=== PATIENT | female | born 2000 | race Caucasian/White ===

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

== ENCOUNTER 2019-01-17 15:08 | Outpatient (CLI) | payer OTHER, SELFPAY ==
[2019-01-17 15:51] LABS: *AMPHETAMINES SCREEN URINE Negative (Negative); *BARBITURATES SCREEN URINE Negative (Negative); *BENZODIAZEPINES SCREEN URINE Negative (Negative); Cannabinoids THC Negative (Negative); Cocaine Screen,Urine Negative (Negative); METHADONE URINE SCREEN Negative (Negative); OPIATES URINE SCREEN Negative (Negative)
[2019-01-17 15:52] LABS: Abs Immature Grans 0.01 k/cumm (0.0-0.09); Absolute Basophil Count 0.04 k/cumm (0.0-0.2); Absolute Eosinophil Count 0.29 k/cumm (0.0-0.7); Absolute Lymphocyte Count 2.33 k/cumm (1.2-3.4); Absolute Neutrophil Count 4.39 k/cumm (1.2-6.7); Basophils % 0.5; Eosinophils % 3.7; HCT 39.6 % (36.0-46.0); HGB 13.1 g/dL (12.0-15.5); Immature Grans % 0.1; Lymphocytes % 29.6; Mean Corp. HGB Concentration 33.1 g/dL (32.0-36.0); Mean Corpuscular Hemoglobin 29.8 pg (27.0-33.0); Mean Corpuscular Volume 90.2 fL (80-95); Mean Platelet Volume 10.7 fL (8.0-11.0); Monocytes % 10.2; Neutrophils % 55.9; Platelet Count 288 x1000/uL (130-400); RBC 4.39 m/cumm (4.00-5.20); White Blood Cell Count 7.86 k/cumm (4.4-10.8)
[2019-01-17 15:54] LABS: Bilirubin Negative (Negative); Blood Negative (Negative); Clarity CLEAR (Clear); Glucose Negative (Negative); Ketones Negative (Negative); Leukocyte Esterase Negative (Negative); Nitrite Negative (Negative); Specific Gravity <= 1.005 (1.005-1.025); Urobilinogen 0.2 EU/dL (Up TO 0.2); pH 5.5 (5-8)
[2019-01-17 15:57] LABS: Tricyclic Antidepressants Negative (Negative)
[2019-01-17 16:31] LABS: TSH (W/Ref FT4) 2.54 uIU/mL (0.52-4.13)
[2019-01-18 09:58] LABS: Rubella IgG Ab (UVM) Positive
[2019-01-18 10:06] LABS: Varicella IgG Antibody Negative
[2019-01-18 11:09] LABS: Hepatitis B Surface Ag Negative (NEGAT)
[2019-01-18 12:15] LABS: Hepatitis C Ab w Rflx HCV PCR Negative (NEGAT)
[2019-01-18 12:56] LABS: HIV-1/2 Ag & Ab Screen Negative (NEGAT)
[2019-01-18 16:10] LABS: Syphilis Total Ab w/Reflex Nonreactive (Nonreactive)
== END 2019-01-17 15:28 ==
PROVIDERS: Advanced Practice Midwife; PCP Pediatrics; Visit Provider Advanced Practice Midwife
DX: Z34.91 Encounter for supervision of normal pregnancy, unspecified, first trimester (principal); Z11.4 Encounter for screening for human immunodeficiency virus [HIV]; Z11.59 Encounter for screening for other viral diseases; Z01.84 Encounter for antibody response examination
CPT/HCPCS: 36415; 80307; 81329; 82950; 86787; 86803; 86850; 86900; 86901; 87340; 87389; 81003; 84443; 85025; 86762; 86780; 87086

== ENCOUNTER 2019-01-31 15:55 | Outpatient (REF) | payer OTHER, SELFPAY ==
[2019-02-02 15:28] LABS: Chlamydia Result Negative; GC Result Negative; Specimen Description URINE
== END 2019-01-31 16:15 ==
LOC: LBN 15:55
PROVIDERS: PCP Pediatrics; Visit Provider Advanced Practice Midwife
DX: Z34.91 Encounter for supervision of normal pregnancy, unspecified, first trimester (principal); Z11.3 Encounter for screening for infections with a predominantly sexual mode of transmission
CPT/HCPCS: 87491; 87591

== ENCOUNTER 2019-02-15 20:29 | Emergency (ER) | payer OTHER, SELFPAY ==
[2019-02-15] VITALS (10 sets, daily range): BP systolic 101–118; BP diastolic 53–70; PULSE 63–100; RESP 16–25; TEMP 37.4; O2SAT 97–100
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
[2019-02-15 21:08] LABS: Abs Immature Grans 0.02 k/cumm (0.0-0.09); Absolute Basophil Count 0.02 k/cumm (0.0-0.2); Absolute Eosinophil Count 0.13 k/cumm (0.0-0.7); Absolute Lymphocyte Count 2.28 k/cumm (1.2-3.4); Absolute Neutrophil Count 4.87 k/cumm (1.2-6.7); Basophils % 0.2; Eosinophils % 1.6; HCT 37.9 % (36.0-46.0); HGB 12.6 g/dL (12.0-15.5); Immature Grans % 0.2; Lymphocytes % 28.1; Mean Corp. HGB Concentration 33.2 g/dL (32.0-36.0); Mean Corpuscular Hemoglobin 29.6 pg (27.0-33.0); Mean Platelet Volume 10.1 fL (8.0-11.0); Monocytes % 9.9; Platelet Count 272 x1000/uL (130-400); RBC 4.26 m/cumm (4.00-5.20); White Blood Cell Count 8.12 k/cumm (4.4-10.8)
[2019-02-15] MEDS: Lactated Ringers 1,000 ML 1000 ML IV (21:18)
[2019-02-15 21:23] LABS: ALT 22 U/L (14-59); AST 10 U/L (15-37); Albumin 3.6 g/dL (3.4-5.0); Alkaline Phosphatase 45 U/L (46-116); Anion Gap 8.2 mmol/L (3-11); BUN 10 mg/dL (7-18); Bilirubin, Total 0.4 mg/dL (0.2-1.0); CO2 24.8 mmol/L (21.0-32.0); CREATININE 0.63 mg/dL (0.55-1.02); Calcium 8.8 mg/dL (8.5-10.1); Chloride 104 mmol/L (98-107); Glucose 82 mg/dL (74-106); Magnesium 1.8 mg/dL (1.8-2.4); Potassium 3.7 mmol/L (3.5-5.1); Sodium 137 mmol/L (136-145); Total Protein 6.9 g/dL (6.4-8.2)
[2019-02-15 21:39] LABS: D-Dimer 360 ng/mlFEU (<500)
[2019-02-15 21:56] LABS: Bilirubin Negative (Negative); Blood Negative (Negative); Clarity Clear (Clear); Glucose Negative (Negative); Ketones Negative (Negative); Leukocyte Esterase Moderate (Negative); Nitrite Negative (Negative); Specific Gravity 1.015 (1.005-1.025); Urobilinogen 0.2 EU/dL (Up TO 0.2); pH 6.5 (5-8)
[2019-02-15 22:17] LABS: Bacteria Few HPF (Negative); Epithelial Cells Few HPF (Negative); Other Cells Negative (Negative); RBC Negative HPF (0-2)
[2019-02-15 22:18] LABS: C & S Indicated? Yes; Casts Negative LPF (Negative); Crystals Negative HPF (Negative); Mucus Negative (Negative)
== END 2019-02-15 22:45 | disposition home or self-care (01) ==
PROVIDERS: Emergency Provider Emergency Medicine; PCP Pediatrics
DX: O26.891 Other specified pregnancy related conditions, first trimester (principal); R55 Syncope and collapse; R51 Headache; R07.89 Other chest pain; Z3A.12 12 weeks gestation of pregnancy
CPT/HCPCS: 36415; 80053; 93005; 96360; 99284; 81003; 81015; 83735; 85025; 85379; 87086; 93010

== ENCOUNTER 2019-02-25 01:52 | Outpatient (CLI) | payer OTHER, SELFPAY ==
--- NOTE | 2019-02-28 11:42 | PDOC.EEG_ITS ---
Neurology EEG EEG: [facility] Department of Neurology EEG REPORT Date of Recordin02/25/19 Interpreting Physician: Dr. Erum Bennett PCP/Referring Provider: Dr. Sam Reason for study: MS. Berumen is a 18 year-old woman, currently , with a 6 month history of spells of LOC concerning for seizure. Current Medications: METHODS: A 21 channel digitized electroencephalogram was performed in the [facility] Clinical Neurophysiology Laboratory. The 10/20 international system of electrode placement was used and bipolar and referential electrode montages were recorded. In addition to EEG the patient was monitored for EKG and lateral/vertical eye movements. Activation procedures of photic stimulation and hyperventilation were performed if applicable. Video was used during activation procedures and during events where applicable. The duration of the recording was 30 minutes. DESCRIPTION OF EEG: The patient was noted to be awake, drowsy, and asleep during the recording. During maximal wakefulness a 10-11 Hz posterior background rhythm was present which was well-modulated, symmetrical, reactive to eye opening, and of moderate voltage. With eye opening the background activity changed to a low voltage mixture of alpha, beta, and occasional theta range frequencies. Faster frequencies were present in the bilateral anterior head regions. There was a normal anterior-posterior voltage gradient. During drowsiness, there was attenuation of the posterior dominant background rhythm and vertex waves. Stage II sleep was present with symmetrical sleep spindles, K-complexes, and vertex waves. Activating Procedures: Photic stimulation was performed which produced a symmetrical posterior driving response at various flash frequencies. Hyperventilation was performed with moderate effort and produced no physiological slowing of the background. EKG: EKG revealed normal sinus rhythm. INTERPRETATION: This EEG is normal during the awake and sleep states as well as during photic stimulation and hyperventilation. PRIOR EEG: none CLINICAL CORRELATION: No focal regions of cerebral dysfunction or epileptiform activity was present. Epilepsy remains a clinical diagnosis and a normal EEG does not rule out epilepsy. Clinical correlation is advised. Erum Bennett MD
== END 2019-02-25 02:12 ==
PROVIDERS: PCP Pediatrics; Visit Provider Pediatrics
DX: R55 Syncope and collapse (principal)
CPT/HCPCS: 95816

== ENCOUNTER 2019-06-27 13:21 | Emergency (ER) | payer OTHER, SELFPAY ==
[2019-06-27 13:21] VITALS: BP 157/106; PULSE 101; RESP 23; TEMP 37; O2SAT 96
--- NOTE | 2019-06-27 13:30 | DI.RAD_ITS ---
EXAM: XR PORTABLE CHEST AP CLINICAL HISTORY: chest pain. TECHNIQUE: 2D digital imaging was performed. COMPARISON: CHEST 2 VIEWS PA,LAT from 05/23/2013 FINDINGS: LUNGS: Clear. No pleural abnormality seen. HEART: Normal. MEDIASTINUM: Normal. OTHER FINDINGS: No pneumothorax. IMPRESSION: No acute pulmonary findings. DATA REPOSITORY: RADIATION DOSE DELIVERED:
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
[2019-06-27 13:41] VITALS: BP 144/90; PULSE 85; RESP 23; O2SAT 95
[2019-06-27 13:45] LABS: Abs Immature Grans 0.04 k/cumm (0.0-0.09); Absolute Basophil Count 0.03 k/cumm (0.0-0.2); Absolute Eosinophil Count 0.03 k/cumm (0.0-0.7); Absolute Lymphocyte Count 1.57 k/cumm (1.2-3.4); Absolute Monocyte Count 0.54 k/cumm (0.11-0.7); Basophils % 0.2; Eosinophils % 0.2; HCT 39.2 % (36.0-46.0); HGB 13.7 g/dL (12.0-15.5); Immature Grans % 0.3 %; Mean Corp. HGB Concentration 34.9 g/dL (32.0-36.0); Mean Corpuscular Hemoglobin 30.1 pg (27.0-33.0); Mean Corpuscular Volume 86.2 fL (80-95); Monocytes % 4.1; Neutrophils % 83.2; Platelet Count 296 x1000/uL (130-400); RBC 4.55 m/cumm (4.00-5.20); RBC Distribution Width 12.6 % (11.7-14.6); White Blood Cell Count 13.05 k/cumm (4.4-10.8)
[2019-06-27 13:46] LABS: Absolute Neutrophil Count 10.86 k/cumm (1.2-6.7)
[2019-06-27] MEDS: Betamet Acet/Betamet Na Ph Inj. 30 MG/5 ML 12 MG IM (13:49)
[2019-06-27 13:55] LABS: INR 0.9 (0.9-1.1); Prothrombin Time 9.2 sec (9.3-11.0)
[2019-06-27] MEDS: Labetalol 100 MG/20 ML VIAL 20 MG IVP (13:56)
[2019-06-27] MEDS: Ondansetron 4 MG/2 ML VIAL (13:57)
[2019-06-27 14:00] VITALS: BP 130/81; PULSE 89; RESP 16; O2SAT 96
[2019-06-27 14:03] LABS: ALT 21 U/L (14-59); AST 27 U/L (15-37); Albumin 2.3 g/dL (3.4-5.0); Alkaline Phosphatase 115 U/L (46-116); Anion Gap 13.8 mmol/L (3-11); BUN 16 mg/dL (7-18); Bilirubin, Total 0.4 mg/dL (0.2-1.0); CO2 17.2 mmol/L (21.0-32.0); CREATININE 1.14 mg/dL (0.55-1.02); Calcium 8.2 mg/dL (8.5-10.1); Chloride 104 mmol/L (98-107); Glucose 96 mg/dL (74-106); Potassium 4.6 mmol/L (3.5-5.1); Sodium 135 mmol/L (136-145); Total Protein 5.8 g/dL (6.4-8.2)
[2019-06-27 14:12] LABS: Troponin I < 0.05 ng/Ml (<0.06)
--- NOTE | 2019-06-27 14:16 | NUR.NOTE ---
Labor and deliver nurseChiquis as been at bedside providing continous heart monitoring since patient arrival to ED
--- NOTE | 2019-06-27 14:27 | NUR.NOTE ---
calcium gluconate prn order for mag tox, clarified with MD, not given in ED. Chiquis, transfer nurse took with pt
[2019-06-27 14:29] VITALS: BP 131/91; PULSE 88; RESP 18
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
== END 2019-06-27 14:45 ==
PROVIDERS: Emergency Provider Student in an Organized Health Care Education/Training Program; PCP Pediatrics
DX: O15.03 Eclampsia complicating pregnancy, third trimester (principal); Z3A.30 30 weeks gestation of pregnancy
CPT/HCPCS: 80053; 86850; 86900; 86901; 99253; 99284; 71045; 84484; 85025; 85610; 99283; J0702; J2405; J3475; J3490

== ENCOUNTER 2021-06-12 06:09 | Emergency (ER) | payer MEDICAID, SELFPAY ==
[2021-06-12] VITALS (9 sets, daily range): BP systolic 98–127; BP diastolic 52–79; PULSE 51–88; RESP 15–23; TEMP 36.6; O2SAT 97–99
[2021-06-12] MEDS: Normal Saline 1,000 ML 1000 ML IV (06:41)
[2021-06-12 06:44] LABS: Abs Immature Grans 0.01 10^3/uL (0.0-0.06); Absolute Basophil Count 0.04 10^3/uL (0.0-0.2); Absolute Eosinophil Count 0.19 10^3/uL (0.0-0.7); Absolute Lymphocyte Count 2.17 10^3/uL (1.2-3.4); Absolute Monocyte Count 0.54 10^3/uL (0.1-0.8); Absolute Neutrophil Count 2.98 10^3/uL (1.2-6.7); Basophils % 0.7; Eosinophils % 3.2; Immature Grans % 0.2; Lymphocytes % 36.6; MCHC 32.6 % (32.0-36.0); MCV 89.2 fL (80-95); MPV 10.7 fL (8.0-11.0); Monocytes % 9.1; Neutrophils % 50.2; Nucleated RBC 0 %; Platelet Count 290 10^3/uL (130-400); RBC 4.82 10^6/uL (3.93-5.22); RDW 12.3 % (11.7-14.6); RDW-SD 40.4 fL; WBC 5.93 10^3/uL (4.4-10.8)
[2021-06-12 06:46] LABS: Bilirubin Negative (Negative); Blood Negative (Negative); Clarity Sl Cloudy (Clear); Glucose Negative (Negative); Ketones Negative (Negative); Leukocyte Esterase Small (Negative); Nitrite Negative (Negative); Specific Gravity >= 1.030 (1.005-1.025); Urobilinogen 0.2 EU/dL (Up TO 0.2)
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
[2021-06-12 06:55] LABS: Bacteria Moderate HPF (Negative); C & S Indicated? No/Sq. Contamination; Casts Negative LPF (Negative); Crystals Negative HPF (Negative); Epithelial Cells Many HPF (Negative); Mucus Trace (Negative)
--- NOTE | 2021-06-12 07:15 | RT.EKG_ITS ---
APPROVED REPORT Exam: Resting ECG Reason for Exam: fainting Patient Location: E HR:81 bpm ECG Measurements Heart Rate 81 AXIS CO 142 P 78 QRSd 97 QRS 44 QT 390 T 20 QTc 452 Conclusion Sinus rhythm...normal P axis, V-rate 60- 99 Physician: no stemi, inverted t wave in III unchanged from prior ekg
[2021-06-12 08:14] LABS: ALT 16 U/L (14-59); AST 9 U/L (15-37); Albumin 3.7 g/dL (3.4-5.0); Alkaline Phosphatase 56 U/L (46-116); Anion Gap 8.3 mmol/L (3-11); BUN 13 mg/dL (7-18); Bilirubin, Total 1.1 mg/dL (0.2-1.0); CO2 22.7 mmol/L (21.0-32.0); CREATININE 0.8 mg/dL (0.55-1.02); Calcium 7.7 mg/dL (8.5-10.1); Chloride 110 mmol/L (98-107); Glucose 94 mg/dL (74-106); Magnesium 1.8 mg/dL (1.8-2.4); NT-proBNP 81 pg/mL (<300); Potassium 4.2 mmol/L (3.5-5.1); Sodium 141 mmol/L (136-145); TSH (W/Ref FT4) 1.78 uIU/mL (0.36-3.74); Total Protein 6.5 g/dL (6.4-8.2); Troponin I < 50 ng/L (<or=60)
[2021-06-12] MEDS: Cephalexin 500 MG CAP, 4 CAPS/BTL PO (08:44)
== END 2021-06-12 09:22 | disposition home or self-care (01) ==
LOC: ER 08:56
PROVIDERS: Student in an Organized Health Care Education/Training Program; Emergency Provider Emergency Medicine
DX: I49.8 Other specified cardiac arrhythmias (principal); I95.1 Orthostatic hypotension; N39.0 Urinary tract infection, site not specified; R55 Syncope and collapse
CPT/HCPCS: 36415; 80053; 81025; 93005; 96360; 99284; 81003; 81015; 83735; 83880; 84443; 84484; 85025; 93010

== ENCOUNTER 2021-06-21 16:41 | Outpatient (REF) | payer MEDICAID, SELFPAY ==
[2021-06-23 15:01] LABS: COVID-19 RT-PCR UVMMC Result Negative (Negative)
== END 2021-06-21 16:42 | disposition home or self-care (01) ==
LOC: LBN 16:41
PROVIDERS: Visit Provider Nurse Practitioner
DX: R68.89 Other general symptoms and signs (principal); Z20.822 Contact with and (suspected) exposure to COVID-19
CPT/HCPCS: U0003

== ENCOUNTER 2021-07-01 09:14 | Emergency (ER) | payer MEDICAID, SELFPAY ==
[2021-07-01] VITALS (32 sets, daily range): BP systolic 97–126; BP diastolic 51–81; PULSE 59–106; RESP 12–25; TEMP 36.7; O2SAT 98–100
--- NOTE | 2021-07-01 09:15 | RT.EKG_ITS ---
APPROVED REPORT Exam: Resting ECG Reason for Exam: Syncope Patient Location: E HR:85 bpm ECG Measurements Heart Rate 85 AXIS WA 135 P 56 QRSd 88 QRS 36 QT 365 T 3 QTc 435 Conclusion Sinus rhythm...normal P axis, V-rate 60- 99 no brugada, no WPW, no HOCM, no long QT, no STEMI, non-diagnostic EKG I have reviewed and interpreted ECG and agree with software generated interpretation.
[2021-07-01 09:37] LABS: Bilirubin Negative (Negative); Blood Negative (Negative); Clarity Clear (Clear); Glucose Negative (Negative); Ketones Negative (Negative); Leukocyte Esterase Moderate (Negative); Nitrite Negative (Negative); Urobilinogen 0.2 EU/dL (Up TO 0.2); pH 7.5 (5-8)
[2021-07-01 09:44] LABS: Bacteria Rare HPF (Negative); C & S Indicated? No/Sq. Contamination; Casts Negative LPF (Negative); Crystals Negative HPF (Negative); Epithelial Cells Moderate HPF (Negative); Mucus Negative (Negative); RBC Negative HPF (0-2)
[2021-07-01] MEDS: Normal Saline 1,000 ML 1000 ML IV (09:50)
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
[2021-07-01 10:14] LABS: Abs Immature Grans 0.01 10^3/uL (0.0-0.06); Absolute Basophil Count 0.04 10^3/uL (0.0-0.2); Absolute Eosinophil Count 0.16 10^3/uL (0.0-0.7); Absolute Lymphocyte Count 2.02 10^3/uL (1.2-3.4); Absolute Monocyte Count 0.47 10^3/uL (0.1-0.8); Absolute Neutrophil Count 3.14 10^3/uL (1.2-6.7); Basophils % 0.7; Eosinophils % 2.7; HCT 38.1 % (36.0-46.0); HGB 12.2 g/dL (11.2-15.7); Immature Grans % 0.2; Lymphocytes % 34.6; MCH 29.1 pg (27.0-33.0); MCV 90.9 fL (80-95); MPV 10.5 fL (8.0-11.0); Neutrophils % 53.8; Nucleated RBC 0 %; Platelet Count 317 10^3/uL (130-400); RBC 4.19 10^6/uL (3.93-5.22); RDW 12.5 % (11.7-14.6); RDW-SD 41.5 fL; WBC 5.84 10^3/uL (4.4-10.8)
[2021-07-01 10:17] LABS: ALT 20 U/L (14-59); AST 18 U/L (15-37); Albumin 4.1 g/dL (3.4-5.0); Alkaline Phosphatase 79 U/L (46-116); Anion Gap 8.8 mmol/L (3-11); BUN 10 mg/dL (7-18); Bilirubin, Total 0.7 mg/dL (0.2-1.0); CO2 26.2 mmol/L (21.0-32.0); CREATININE 0.7 mg/dL (0.55-1.02); Calcium 8.8 mg/dL (8.5-10.1); Chloride 106 mmol/L (98-107); Glucose 70 mg/dL (74-106); Potassium 4.1 mmol/L (3.5-5.1); Sodium 141 mmol/L (136-145); Total Protein 7.5 g/dL (6.4-8.2); Troponin I < 50 ng/L (<or=60)
[2021-07-01 10:54] LABS: D-Dimer 212 ng/mlFEU (<500)
[2021-07-01 11:10] LABS: Bilirubin Negative (Negative); Blood Negative (Negative); Clarity Clear (Clear); Glucose Negative (Negative); Ketones Negative (Negative); Leukocyte Esterase Negative (Negative); Nitrite Negative (Negative); Specific Gravity 1.015 (1.005-1.025); Urobilinogen 0.2 EU/dL (Up TO 0.2); pH 7.5 (5-8)
--- NOTE | 2021-07-01 12:18 | NUR.NOTE ---
PCP referral for F/u to Postural Syncope sent to [facility]. F/u within 1 week.
== END 2021-07-01 12:32 | disposition home or self-care (01) ==
PROVIDERS: Emergency Provider Nurse Practitioner Family
DX: I49.8 Other specified cardiac arrhythmias; R55 Syncope and collapse; R20.2 Paresthesia of skin
CPT/HCPCS: 36415; 36416; 80053; 81025; 82962; 93005; 96360; 99284; 81003; 81015; 83735; 84443; 84484; 85025; 85379; 87086; 93010

== ENCOUNTER 2021-07-01 12:25 | Outpatient (RCR) | payer MEDICAID, SELFPAY ==
--- NOTE | 2021-07-01 12:15 | HOLTER_ITS ---
APPROVED REPORT Conclusion This is a 48-hour Holter monitor Predominant rhythm was sinus with an average heart rate of 80. Minimum was 53, maximum 143 There were very rare atrial and ventricular ectopic beats There was no atrial fibrillation, no high-grade AV block, no pauses greater than 3 seconds Patient symptoms of dizziness corresponded to sinus tachycardia
== END 2021-07-27 23:59 | disposition home or self-care (01) ==
LOC: RT 12:25
DX: R55 Syncope and collapse (principal)
CPT/HCPCS: 93225; 93226

== ENCOUNTER 2021-12-06 11:40 | Emergency (ER) | payer MEDICAID, SELFPAY ==
--- NOTE | 2021-12-06 11:30 | RT.EKG_ITS ---
APPROVED REPORT Exam: Resting ECG Reason for Exam: dizzyness Patient Location: E HR:88 bpm ECG Measurements Heart Rate 88 AXIS OH 115 P 51 QRSd 87 QRS 14 QT 348 T -9 QTc 422 Conclusion Sinus rhythm...normal P axis, V-rate 60- 99
[2021-12-06 11:46] VITALS: BP 119/69; PULSE 97; RESP 18; TEMP 37.1; O2SAT 96
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
[2021-12-06 12:55] LABS: Source Nasal/Nares
[2021-12-06 12:58] LABS: Abs Immature Grans 0.05 10^3/uL (0.0-0.06); Absolute Basophil Count 0.03 10^3/uL (0.0-0.2); Absolute Eosinophil Count 0.17 10^3/uL (0.0-0.7); Absolute Lymphocyte Count 1.61 10^3/uL (1.2-3.4); Absolute Monocyte Count 0.63 10^3/uL (0.1-0.8); Absolute Neutrophil Count 6.42 10^3/uL (1.2-6.7); Basophils % 0.3; Eosinophils % 1.9; HCT 35.7 % (36.0-46.0); HGB 11.7 g/dL (11.2-15.7); Immature Grans % 0.6; Lymphocytes % 18.1; MCH 29.9 pg (27.0-33.0); MCHC 32.8 % (32.0-36.0); MCV 91 fL (80-95); Monocytes % 7.1; Platelet Count 274 10^3/uL (130-400); RBC 3.91 10^6/uL (3.93-5.22); RDW 13.1 % (11.7-14.6); RDW-SD 43.5 fL; WBC 8.91 10^3/uL (4.4-10.8)
[2021-12-06] MEDS: Normal Saline 1,000 ML 1000 ML IV (13:12)
[2021-12-06 13:15] LABS: ALT 10 U/L (14-59); AST 12 U/L (15-37); Albumin 2.9 g/dL (3.4-5.0); Alkaline Phosphatase 60 U/L (46-116); Anion Gap 9.7 mmol/L (3-11); BUN 4 mg/dL (7-18); Bilirubin, Total 0.4 mg/dL (0.2-1.0); CO2 21.3 mmol/L (21.0-32.0); CREATININE 0.5 mg/dL (0.55-1.02); Calcium 7.9 mg/dL (8.5-10.1); Chloride 105 mmol/L (98-107); Estimated GFR 135.91 (mL/min/1.73m2); Glucose 87 mg/dL (74-106); Magnesium 1.7 mg/dL (1.8-2.4); Potassium 3.5 mmol/L (3.5-5.1); Sodium 136 mmol/L (136-145); Total Protein 6.8 g/dL (6.4-8.2); Troponin I < 50 ng/L (<or=60)
[2021-12-06 13:28] LABS: COVID-19 PCR Negative (Negative)
[2021-12-06 14:20] VITALS: BP 107/59; PULSE 86; RESP 18; TEMP 36.8; O2SAT 100
[2021-12-06] MEDS: Magnesium Oxide 400 MG TAB PO (14:24)
[2021-12-06] MEDS: Normal Saline Flush 10 ML SYR IVP (14:27)
[2021-12-06 14:47] LABS: Bilirubin Negative (Negative); Blood Negative (Negative); Clarity Clear (Clear); Glucose Negative (Negative); Ketones Negative (Negative); Leukocyte Esterase Negative (Negative); Nitrite Negative (Negative); Urobilinogen 0.2 EU/dL (Up TO 0.2); pH 6.5 (5-8)
[2021-12-06 15:04] VITALS: BP 109/56; PULSE 87; RESP 18; TEMP 36.6; O2SAT 100
== END 2021-12-06 15:19 | disposition home or self-care (01) ==
PROVIDERS: Emergency Provider Registered Nurse Emergency
DX: O26.892 Other specified pregnancy related conditions, second trimester (principal); R42 Dizziness and giddiness; Z20.822 Contact with and (suspected) exposure to COVID-19; Z3A.25 25 weeks gestation of pregnancy
CPT/HCPCS: 80053; 87635; 93005; 96360; 99284; 81003; 83735; 84484; 85025; 93010

== ENCOUNTER 2022-02-12 15:58 | Outpatient (CLI) | payer MEDICAID, SELFPAY ==
[2022-02-12 13:59] LABS: Abs Immature Grans 0.07 10^3/uL (0.0-0.06); Absolute Basophil Count 0.03 10^3/uL (0.0-0.2); Absolute Eosinophil Count 0.14 10^3/uL (0.0-0.7); Absolute Lymphocyte Count 1.82 10^3/uL (1.2-3.4); Absolute Monocyte Count 1.06 10^3/uL (0.1-0.8); Absolute Neutrophil Count 7.15 10^3/uL (1.2-6.7); Basophils % 0.3; Eosinophils % 1.4; HCT 30.9 % (36.0-46.0); HGB 10.1 g/dL (11.2-15.7); Immature Grans % 0.7; Lymphocytes % 17.7; MCH 28.5 pg (27.0-33.0); MCHC 32.7 % (32.0-36.0); MCV 87 fL (80-95); Monocytes % 10.3; Neutrophils % 69.6; Platelet Count 263 10^3/uL (130-400); RBC 3.55 10^6/uL (3.93-5.22); RDW 13.6 % (11.7-14.6); RDW-SD 43.2 fL; WBC 10.27 10^3/uL (4.4-10.8)
[2022-02-12 14:24] LABS: ALT 11 U/L (14-59); AST 11 U/L (15-37); Albumin 2.5 g/dL (3.4-5.0); Alkaline Phosphatase 71 U/L (46-116); Anion Gap 9.1 mmol/L (3-11); BUN 4 mg/dL (7-18); Bilirubin, Total 0.6 mg/dL (0.2-1.0); CO2 22.9 mmol/L (21.0-32.0); CREATININE 0.6 mg/dL (0.55-1.02); Calcium 8.3 mg/dL (8.5-10.1); Chloride 106 mmol/L (98-107); Estimated GFR 130.07 (mL/min/1.73m2); Glucose 78 mg/dL (74-106); Potassium 3.9 mmol/L (3.5-5.1); Sodium 138 mmol/L (136-145); Total Protein 6.2 g/dL (6.4-8.2)
[2022-02-12 14:26] LABS: Bilirubin Negative (Negative); Blood Negative (Negative); Clarity Clear (Clear); Glucose Negative (Negative); Ketones Negative (Negative); Leukocyte Esterase Moderate (Negative); Nitrite Negative (Negative); Specific Gravity 1.015 (1.005-1.025); Urobilinogen 0.2 EU/dL (Up TO 0.2)
[2022-02-12 14:39] LABS: Bacteria Rare HPF (Negative); C & S Indicated? No/Sq. Contamination; Casts Negative LPF (Negative); Crystals Negative HPF (Negative); Epithelial Cells Moderate HPF (Negative); Mucus Negative (Negative); RBC Negative HPF (0-2)
[2022-02-12 15:00] LABS: COMMENT (LAB VIEW ONLY) 23.79 mg/dL; PROTEIN < 6.0 mg/dL
== END 2022-02-12 15:59 | disposition home or self-care (01) ==
LOC: LBO 15:59
PROVIDERS: PCP Nurse Practitioner Family; Visit Provider Obstetrics & Gynecology Maternal & Fetal Medicine
DX: O09.293 Supervision of pregnancy with other poor reproductive or obstetric history, third trimester (principal); Z3A.35 35 weeks gestation of pregnancy
CPT/HCPCS: 36415; 80053; 81003; 81015; 82565; 84156; 85025

== ENCOUNTER 2022-09-18 18:06 | Emergency (ER) | payer MEDICAID, OTHER, SELFPAY ==
[2022-09-18 18:05] VITALS: BP 119/99; PULSE 105; RESP 18; TEMP 36.4; O2SAT 98
--- NOTE | 2022-09-18 18:15 | RT.EKG_ITS ---
APPROVED REPORT Exam: Resting ECG Reason for Exam: syncope Patient Location: E HR:84 bpm ECG Measurements Heart Rate 84 AXIS DC 140 P 65 QRSd 93 QRS 14 QT 400 T 5 QTc 470 Conclusion Sinus rhythm...normal P axis, V-rate 60- 99 Physician: no stemi, inverted t wave in III, unchanged from prior ekg on 12/06/21
[2022-09-18] MEDS: Ondansetron 4 MG/2 ML VIAL IVP (18:31)
[2022-09-18] MEDS: Normal Saline 1,000 ML 1000 ML IV (18:31)
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
[2022-09-18 18:39] LABS: Abs Immature Grans 0.01 10^3/uL (0.0-0.06); Absolute Basophil Count 0.04 10^3/uL (0.0-0.2); Absolute Eosinophil Count 0.12 10^3/uL (0.0-0.7); Absolute Lymphocyte Count 1.56 10^3/uL (1.2-3.4); Absolute Monocyte Count 0.38 10^3/uL (0.1-0.8); Absolute Neutrophil Count 3.39 10^3/uL (1.2-6.7); Basophils % 0.7; Eosinophils % 2.2; HCT 41.4 % (36.0-46.0); HGB 13.5 g/dL (11.2-15.7); Immature Grans % 0.2; Lymphocytes % 28.4; MCH 28.2 pg (27.0-33.0); MCHC 32.6 % (32.0-36.0); MCV 87 fL (80-95); MPV 11.2 fL (8.0-11.0); Monocytes % 6.9; Neutrophils % 61.6; Platelet Count 309 10^3/uL (130-400); RBC 4.78 10^6/uL (3.93-5.22); RDW 13.2 % (11.7-14.6); RDW-SD 41.5 fL
[2022-09-18 19:09] LABS: ALT 19 U/L (14-59); AST 10 U/L (15-37); Albumin 3.8 g/dL (3.4-5.0); Alkaline Phosphatase 95 U/L (46-116); Anion Gap 11.9 mmol/L (3-11); BUN 13 mg/dL (7-18); Bilirubin, Total 0.4 mg/dL (0.2-1.0); CO2 24.1 mmol/L (21.0-32.0); CREATININE 0.9 mg/dL (0.55-1.02); Calcium 8.9 mg/dL (8.5-10.1); Chloride 109 mmol/L (98-107); Glucose 123 mg/dL (74-106); Magnesium 1.8 mg/dL (1.8-2.4); Potassium 3.2 mmol/L (3.5-5.1); Sodium 145 mmol/L (136-145); Total Protein 7.6 g/dL (6.4-8.2); Troponin I < 50 ng/L (<or=60)
[2022-09-18] MEDS: Potassium Chloride 20 MEQ TABCR 40 MEQ PO (20:11)
[2022-09-18] MEDS: LORazepam 2 MG/ML VIAL 1 MG IVP (20:16)
[2022-09-18 20:34] LABS: Bilirubin Negative (Negative); Blood Trace-intact (Negative); Clarity Clear (Clear); Glucose Negative (Negative); Ketones Negative (Negative); Leukocyte Esterase Negative (Negative); Nitrite Negative (Negative)
[2022-09-18 20:44] LABS: Bacteria Negative HPF (Negative); C & S Indicated? No; Casts Negative LPF (Negative); Crystals Negative HPF (Negative); Epithelial Cells Rare HPF (Negative); Mucus Negative (Negative); RBC 0-2 HPF (0-2); WBC 0-2 HPF (0-5)
[2022-09-18] MEDS: Doxycycline Hyclate 100 MG CAP PO (21:35)
[2022-09-18] MEDS: metroNIDAZOLE 500 MG TAB PO (21:35)
[2022-09-18] MEDS: Levonorgestrel 1.5 MG KIT/PACKET PO (21:36)
[2022-09-18] MEDS: cefTRIAXone 500 MG VIAL IM (21:36)
--- NOTE | 2022-09-18 21:46 | NUR.NOTE ---
follow up with pcp requested, faxed overNursing Note:
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
[2022-09-18 22:10] VITALS: BP 132/78; PULSE 95; O2SAT 97
--- NOTE | 2022-09-18 23:56 | NUR.NOTE ---
Kit# [id number] to ABELINO Sheldon at [id number] on 09/18/22 Nursing Note:
[2022-09-20 13:09] LABS: Chlamydia Result Negative (Negative); GC Result Negative (Negative)
[2022-09-20 13:10] LABS: Chlamydia Result Negative (Negative); GC Result Negative (Negative)
[2022-09-21 10:25] LABS: HIV-1/2 Ag & Ab Screen Negative (Negative)
[2022-09-22 11:38] LABS: Hepatitis A Antibody IgM Negative (Negative); Hepatitis B Core Antibody Negative (Negative); Hepatitis B surface Ag Negative (Negative); Hepatitis C Ab w Rflx HCV PCR Negative (Negative)
== END 2022-09-18 23:00 | disposition home or self-care (01) ==
LOC: ER 23:00
PROVIDERS: Emergency Medicine Emergency Medical Services; Emergency Provider Student in an Organized Health Care Education/Training Program; PCP Nurse Practitioner Family
DX: T74.21XA Adult sexual abuse, confirmed, initial encounter; S00.83XA Contusion of other part of head, initial encounter; G90.A Postural orthostatic tachycardia syndrome [POTS]; E87.6 Hypokalemia; F41.9 Anxiety disorder, unspecified
CPT/HCPCS: 80053; 86704; 86709; 86803; 87340; 87389; 87491; 87529; 87591; 93005; 96365; 96375; 99284; 81003; 81015; 83735; 84484; 85025; 87480; 87510; 87660; 93010; J0696; J2060; J2405

== ENCOUNTER 2022-10-14 15:38 | Outpatient (REF) | payer MEDICAID, SELFPAY ==
[2022-10-16 13:27] LABS: Chlamydia Result Negative (Negative); GC Result Negative (Negative)
== END 2022-10-14 15:39 | disposition home or self-care (01) ==
LOC: LBN 15:38
PROVIDERS: PCP Nurse Practitioner Family; Visit Provider Nurse Practitioner Women's Health
DX: Z76.0 Encounter for issue of repeat prescription (principal); Z11.3 Encounter for screening for infections with a predominantly sexual mode of transmission
CPT/HCPCS: 87491; 87591; 87480; 87510; 87660

== ENCOUNTER 2024-01-06 09:58 | Outpatient (CLI) | payer MEDICAID, SELFPAY ==
[2024-01-06 12:24] LABS: Abs Immature Grans 0.01 10^3/uL (0.0-0.06); Absolute Basophil Count 0.06 10^3/uL (0.0-0.2); Absolute Eosinophil Count 0.17 10^3/uL (0.0-0.7); Absolute Lymphocyte Count 1.87 10^3/uL (1.2-3.4); Absolute Monocyte Count 0.48 10^3/uL (0.1-0.8); Absolute Neutrophil Count 4.12 10^3/uL (1.2-6.7); Basophils % 0.9 %; Eosinophils % 2.5 %; HCT 43.3 % (36.0-46.0); HGB 13.8 g/dL (11.2-15.7); Immature Grans % 0.1 %; Lymphocytes % 27.9 %; MCH 29.3 pg (27.0-33.0); MCHC 31.9 % (32.0-36.0); MCV 92 fL (80-95); MPV 11.4 fL (8.0-11.0); Monocytes % 7.2 %; Neutrophils % 61.4 %; Platelet Count 287 10^3/uL (130-400); RBC 4.71 10^6/uL (3.93-5.22); RDW 12.5 % (11.7-14.6); RDW-SD 42.2 fL; WBC 6.71 10^3/uL (4.4-10.8)
[2024-01-06 14:00] LABS: ALT 19 U/L (14-59); AST 12 U/L (15-37); Albumin 4.1 g/dL (3.4-5.0); Alkaline Phosphatase 77 U/L (46-116); Anion Gap 13.9 mmol/L (3-11); BUN 13 mg/dL (7-18); Bilirubin, Total 0.78 mg/dL (0.2-1.0); CO2 24.1 mmol/L (21.0-32.0); CREATININE 0.9 mg/dL (0.55-1.02); Calcium 8.9 mg/dL (8.5-10.1); Chloride 107 mmol/L (98-107); Estimated GFR 91.55 (mL/min/1.73m2); Glucose 91 mg/dL (74-106); Potassium 4.5 mmol/L (3.5-5.1); Sodium 145 mmol/L (136-145); Total Protein 7.5 g/dL (6.4-8.2)
[2024-01-07 13:15] LABS: IgA 140 mg/dL (85-499); Interpretation (See Note); Tissue Transglutaminase IgA <4.0 CU (<20.0)
== END 2024-01-06 09:59 | disposition home or self-care (01) ==
LOC: LOS 09:59
PROVIDERS: PCP Nurse Practitioner Family; Visit Provider Nurse Practitioner Family
DX: R19.7 Diarrhea, unspecified (principal)
CPT/HCPCS: 36415; 80053; 82784; 83516; 85025

== ENCOUNTER 2024-01-06 14:53 | Outpatient (REF) | payer MEDICAID, SELFPAY ==
[2024-01-07 13:41] LABS: Campylobacter PCR Negative (Negative); Salmonella PCR Negative (Negative); Shiga Toxin PCR Negative (Negative); Shigella/Enteroinvasive Ecoli Negative (Negative)
[2024-01-08 20:48] LABS: Calprotectin <50.0 mcg/g
== END 2024-01-06 14:54 | disposition home or self-care (01) ==
LOC: LBN 14:53
PROVIDERS: PCP Nurse Practitioner Family; Visit Provider Nurse Practitioner Family
DX: R19.7 Diarrhea, unspecified (principal)
CPT/HCPCS: 87493; 87505; 83993

== ENCOUNTER 2024-03-15 10:09 | Outpatient (CLI) | payer MEDICAID, SELFPAY ==
[2024-03-15 12:23] LABS: Abs Immature Grans 0.02 10^3/uL (0.0-0.06); Absolute Basophil Count 0.06 10^3/uL (0.0-0.2); Absolute Eosinophil Count 0.11 10^3/uL (0.0-0.7); Absolute Lymphocyte Count 1.66 10^3/uL (1.2-3.4); Absolute Monocyte Count 0.52 10^3/uL (0.1-0.8); Absolute Neutrophil Count 4.08 10^3/uL (1.2-6.7); Basophils % 0.9 %; Eosinophils % 1.7 %; HCT 41.5 % (36.0-46.0); HGB 13.2 g/dL (11.2-15.7); Immature Grans % 0.3 %; Lymphocytes % 25.7 %; MCH 28.9 pg (27.0-33.0); MCHC 31.8 % (32.0-36.0); MCV 91 fL (80-95); MPV 11.4 fL (8.0-11.0); Monocytes % 8.1 %; Neutrophils % 63.3 %; Platelet Count 289 10^3/uL (130-400); RBC 4.56 10^6/uL (3.93-5.22); RDW-SD 43.2 fL; WBC 6.45 10^3/uL (4.4-10.8)
[2024-03-15 14:21] LABS: ALT 15 U/L (14-59); AST 14 U/L (15-37); Albumin 4.2 g/dL (3.4-5.0); Alkaline Phosphatase 66 U/L (46-116); Anion Gap 12.8 mmol/L (3-11); BUN 8 mg/dL (7-18); CO2 26.2 mmol/L (21.0-32.0); CREATININE 0.9 mg/dL (0.55-1.02); Calcium 8.7 mg/dL (8.5-10.1); Chloride 106 mmol/L (98-107); Estimated GFR 91.55 (mL/min/1.73m2); Glucose 98 mg/dL (74-106); Lipase 15 U/L (<78); Potassium 3.5 mmol/L (3.5-5.1); Sodium 145 mmol/L (136-145); Total Protein 7.5 g/dL (6.4-8.2)
[2024-03-15 18:07] LABS: Bilirubin Negative (Negative); Blood Small (Negative); Clarity Turbid (Clear); Glucose Negative (Negative); Ketones Negative (Negative); Leukocyte Esterase Small (Negative); Nitrite Negative (Negative); Specific Gravity >= 1.030 (1.005-1.025); Urobilinogen 0.2 mg/dL (Up to 0.2); pH 5.5 (5-8)
[2024-03-15 18:31] LABS: C & S Indicated? No/Sq. Contamination; Crystals Many Amorphous HPF (Negative); Epithelial Cells Many HPF (Negative)
== END 2024-03-15 10:10 | disposition home or self-care (01) ==
LOC: LOS 10:09
PROVIDERS: PCP Nurse Practitioner Family; Referring Provider Nurse Practitioner Family; Visit Provider Nurse Practitioner Family
DX: R10.9 Unspecified abdominal pain (principal); Z11.52 Encounter for screening for COVID-19; J02.9 Acute pharyngitis, unspecified; B34.9 Viral infection, unspecified
CPT/HCPCS: 36415; 80053; 83690; 81003; 81015; 85025

== ENCOUNTER 2024-03-16 16:22 | Outpatient (REF) | payer MEDICAID, SELFPAY ==
[2024-03-16 21:09] LABS: Lab Add On Test DONE
[2024-03-16 21:30] LABS: Bilirubin, Direct 0.2 mg/dL (0.0-0.2)
[2024-03-16 21:42] LABS: TSH (W/Ref FT4) 1.43 uIU/mL (0.36-3.74)
[2024-03-17 20:03] LABS: Hepatitis C Ab w Rflx HCV PCR Negative (Negative)
[2024-03-18 09:48] LABS: EBNA IgG Positive (Negative); EBV Interpretation (See Note); VCA IgG Positive (Negative); VCA IgM Negative (Negative)
== END 2024-03-16 16:23 | disposition home or self-care (01) ==
LOC: LBN 16:22
PROVIDERS: PCP Nurse Practitioner Family; Visit Provider Nurse Practitioner Family
DX: R10.11 Right upper quadrant pain (principal); R59.1 Generalized enlarged lymph nodes; E01.0 Iodine-deficiency related diffuse (endemic) goiter
CPT/HCPCS: 86803; 82248; 84443; 86664; 86665

== ENCOUNTER 2024-03-18 00:35 | Outpatient (CLI) | payer MEDICAID, SELFPAY ==
[2024-03-18] MEDS: Barium Sulfate 2% W/V-Creamy Vanilla Smoothie 450 ML BTL PO ×2 (11:23→11:24)
[2024-03-18] MEDS: Normal Saline - Diluent 50 ML VIAL IJ (13:39)
[2024-03-18] MEDS: Omnipaque 350 MG/ML 100 ML BTL 75 ML IJ (13:39)
--- NOTE | 2024-03-18 13:46 | DI.CT_ITS ---
Exam(s) CT ABDOMEN PELVIS W EXAM: CT ABDOMEN PELVIS W CLINICAL HISTORY: continued pain, ? hepatosplenomegaly,elevated bilirubin TECHNIQUE: Imaging Protocol: Axial computed tomography images with coronal and sagittal reformatted images were created and reviewed. CONTRAST MATERIAL: Intravenous: Omnipaque 350 Contrast volume:75 mL Oral: Yes COMPARISON: No exams were available for comparison FINDINGS: ABDOMEN: Lung Bases: No acute abnormality. Liver: Normal density. No measurable mass. The liver measures 18 cm long. Portal, Superior Mesenteric, and Splenic Veins: Unremarkable. Gallbladder and Biliary Tract: No radiodense calculus or dilation. Pancreas: Normal density, no abnormal calcifications or inflammatory process. Spleen: Normal. Adrenals: No masses seen. Kidneys: Normal size, contour and axis. No radiodense stones or obstructive uropathy. No masses seen. Abdominal Aorta: Abdominal portion non-dilated. Bowel: No obstruction or bowel wall thickening. No evidence of appendicitis. Peritoneal Cavity: No ascites, collection or mesenteric inflammatory response. No free air. Lymph Nodes: Within normal limits. Bones: Within normal limits for the patient's age. There is unilateral spondylolysis at L5 on the ri ght. No spondylolisthesis is present. Soft Tissues: Unremarkable. PELVIS: Bladder: Symmetric distention, no gross wall thickening. Reproductive Organs: Unremarkable as visualized. Lymph Nodes: Within normal limits. Bones: Within normal limits for the patient's age. IMPRESSION: 1. No acute abdominal or pelvic process. 2. Mild hepatomegaly. No evidence of splenomegaly. RADIATION DOSE DELIVERED: 534.33mGy.cm Total DLP DATA REPOSITORY: All CT scans at this facility are submitted to the National Radiology Data Registry (NRDR) Dose Index Registry (DIR) with the [employer] ([employer]). RADIATION OPTIMIZATION: All CT scans at this facility use at least one of these dose optimization te chniques: automated exposure control; mA and/or kV adjustment per patient size (includes targeted exa ms where dose is matched to clinical indication); or iterative reconstruction.
== END 2024-03-18 00:55 ==
LOC: DI 00:35
PROVIDERS: PCP Nurse Practitioner Family; Visit Provider Nurse Practitioner Family
DX: R10.11 Right upper quadrant pain; R19.7 Diarrhea, unspecified
CPT/HCPCS: 74177; J3490

== ENCOUNTER 2024-03-29 01:25 | Outpatient (CLI) | payer MEDICAID, SELFPAY ==
--- NOTE | 2024-03-29 07:45 | DI.US_ITS ---
Exam(s) US THYROID EXAM: US THYROID CLINICAL HISTORY: R>L THYROMEGALY,E01.0,GOITER. TECHNIQUE: Ultrasound thyroid performed using standard protocol. COMPARISON: No exams were available for comparison FINDINGS: Both thyroid lobes as well as the isthmus exhibit normal size and normal echotexture. There are no t hyroid nodules evident. There is no gland hyperemia. LYMPH NODES: There are small normal appearing lymph nodes in both sides of the neck. There is no sig nificant adenopathy. IMPRESSION: Normal thyroid ultrasound exam DATA REPOSITORY:
== END 2024-03-29 01:45 ==
LOC: DI 01:25
PROVIDERS: PCP Nurse Practitioner Family; Visit Provider Nurse Practitioner Family
DX: E01.0 Iodine-deficiency related diffuse (endemic) goiter (principal)
CPT/HCPCS: 76536

== ENCOUNTER 2024-05-14 16:41 | Emergency (ER) | payer MEDICAID, SELFPAY ==
[2024-05-14] VITALS (45 sets, daily range): BP systolic 111–139; BP diastolic 58–89; PULSE 98–122; RESP 14–23; TEMP 37.6–38.3; O2SAT 93–99
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
[2024-05-14] MEDS: Famotidine 20 MG/2 ML VIAL IVP (17:23)
[2024-05-14] MEDS: Lactated Ringers 1,000 ML 1000 ML IV (17:24)
[2024-05-14] MEDS: Prochlorperazine 10 MG/2 ML VIAL 5 MG IVP ×2 (17:24→20:54)
[2024-05-14] MEDS: ACETAMINOPHEN 500 MG/50 ML BAG 200 MG IVPB ×2 (17:27→20:54)
[2024-05-14 17:31] LABS: Bilirubin Small (Negative); Blood Negative (Negative); Clarity Clear (Clear); Glucose Negative (Negative); Ketones >=160 mg/dL (Negative); Leukocyte Esterase Negative (Negative); Nitrite Negative (Negative); Specific Gravity >= 1.030 (1.005-1.025)
[2024-05-14 17:39] LABS: Bacteria Few HPF (Negative); C & S Indicated? No/Sq. Contamination; Casts Negative LPF (Negative); Crystals Negative HPF (Negative); Epithelial Cells Many HPF (Negative); Mucus Moderate (Negative); RBC 0-2 HPF (0-2); WBC 0-2 HPF (0-5)
[2024-05-14 17:44] LABS: Abs Immature Grans 0.02 10^3/uL (0.0-0.06); Absolute Basophil Count 0.02 10^3/uL (0.0-0.2); Absolute Lymphocyte Count 0.41 10^3/uL (1.2-3.4); Absolute Monocyte Count 0.37 10^3/uL (0.1-0.8); Absolute Neutrophil Count 3.71 10^3/uL (1.2-6.7); Basophils % 0.4 %; HGB 12.8 g/dL (11.2-15.7); Immature Grans % 0.4 %; Lymphocytes % 9.1 %; MCH 29.4 pg (27.0-33.0); MCHC 33.7 % (32.0-36.0); MCV 87 fL (80-95); MPV 10.7 fL (8.0-11.0); Monocytes % 8.2 %; Neutrophils % 81.9 %; Platelet Count 220 10^3/uL (130-400); RBC 4.36 10^6/uL (3.93-5.22); RDW 12.7 % (11.7-14.6); RDW-SD 40.5 fL; WBC 4.53 10^3/uL (4.4-10.8)
[2024-05-14 17:58] LABS: ALT 26 U/L (14-59); AST 15 U/L (15-37); Albumin 3.7 g/dL (3.4-5.0); Alkaline Phosphatase 65 U/L (46-116); Anion Gap 10.5 mmol/L (3-11); BUN 4 mg/dL (7-18); CO2 25.5 mmol/L (21.0-32.0); CREATININE 0.9 mg/dL (0.55-1.02); Calcium 8.6 mg/dL (8.5-10.1); Chloride 102 mmol/L (98-107); Estimated GFR 91.55 (mL/min/1.73m2); Glucose 113 mg/dL (74-106); Lipase 13 U/L (<78); Magnesium 1.5 mg/dL (1.8-2.4); Sodium 138 mmol/L (136-145); Total Protein 7.6 g/dL (6.4-8.2)
[2024-05-14 18:00] LABS: Potassium 2.8 mmol/L (3.5-5.1)
--- NOTE | 2024-05-14 18:00 | RT.EKG_ITS ---
APPROVED REPORT Exam: Resting ECG Reason for Exam: electrolytes abnl Patient Location: E HR:102 bpm ECG Measurements Heart Rate 102 AXIS NC 132 P 61 QRSd 94 QRS 24 QT 342 T -3 QTc 446 Conclusion Sinus tachycardia...rate> 99
--- NOTE | 2024-05-14 18:10 | DI.VRAD_ITS ---
PROCEDURE INFORMATION: Exam: XR Chest Exam date and time: 05/14/2024 5:44 PM Age: 23 years old Clinical indication: Other: Left crackles, fever, flu a TECHNIQUE: Imaging protocol: Radiologic exam of the chest. Views: 2 views. COMPARISON: CR XR PORTABLE CHEST AP 27/06/2019 13:56 FINDINGS: Lungs: Unremarkable. No consolidation. Pleural spaces: Unremarkable. No pleural effusion. No pneumothorax. Heart/Mediastinum: Unremarkable. No cardiomegaly. Bones/joints: Unremarkable for patient's age. IMPRESSION: No acute cardiopulmonary findings. Dictated and Authenticated by: Alysia Colvin MD. Orderin Stefan Matthews MD
[2024-05-14] MEDS: POTASSIUM CHLORIDE 20 MEQ/100 ML BAG 50 MEQ IV_INF (18:30)
[2024-05-14] MEDS: Potassium Chloride Liquid 20 MEQ PKT 40 MEQ PO (18:31)
[2024-05-14] MEDS: MAGNESIUM SULFATE 2 GM/50 ML BAG IV_INF (18:31)
[2024-05-14] MEDS: Normal Saline 1,000 ML 250 ML IV (18:40)
[2024-05-14] MEDS: Amoxicillin 500 MG CAP 1000 MG PO ×2 (20:54→21:57)
[2024-05-14] MEDS: Ketorolac 15 MG/ML VIAL 7.5 MG IVP (20:55)
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
== END 2024-05-14 21:59 | disposition home or self-care (01) ==
PROVIDERS: Emergency Provider Physician Assistant; PCP Nurse Practitioner Family
DX: J10.1 Influenza due to other identified influenza virus with other respiratory manifestations (principal); R00.0 Tachycardia, unspecified; E87.6 Hypokalemia; E83.42 Hypomagnesemia; E86.0 Dehydration; H66.91 Otitis media, unspecified, right ear
CPT/HCPCS: 36415; 80053; 81025; 83690; 93005; 96365; 96366; 96367; 96368; 96375; 99285; 71046; 81003; 81015; 83735; 85025; 93010; J0131; J0780; J1885; J3475; J3480